=== PATIENT | female | born 1930 | race African-American/Black ===

== ENCOUNTER 2018-03-13 11:53 | Inpatient (IN) | payer OTHER ==
[~2018-03-13] VITALS: Ht 152.4 cm; Wt 45.4 kg
[~2018-03-13 11:53] MED LIST: COZAAR25 MG
[2018-03-13] MEDS ORDERED: ISOSORBIDE DINI30 MG (12:29)
[2018-03-13] MEDS ORDERED: ATIVAN1 MG (12:29)
[2018-03-13] MEDS ORDERED: PROTONIX40 MG (12:30)
[2018-03-20] MEDS ORDERED: LASIX20 MG PO (08:52)
== END 2018-03-20 16:58 | disposition home or self-care (01) | DRG 186 ==
LOC: ER 11:53 → MEDJ 03-14 08:44
PROC: 3E0F7GC Introduction of Other Therapeutic Substance into Respiratory Tract, Via Natural or Artificial Opening (ICD-10-PCS; 2018-03-14)
PROC: B246ZZZ Ultrasonography of Right and Left Heart (ICD-10-PCS; 2018-03-14)
PROC: 0W993ZX Drainage of Right Pleural Cavity, Percutaneous Approach, Diagnostic (ICD-10-PCS; principal; 2018-03-15)
PROC: BW40ZZZ Ultrasonography of Abdomen (ICD-10-PCS; 2018-03-19)
PROC: BW21ZZZ Computerized Tomography (CT Scan) of Abdomen and Pelvis (ICD-10-PCS; 2018-03-19)
DX: J90 Pleural effusion, not elsewhere classified (principal); B37.1 Pulmonary candidiasis; J45.41 Moderate persistent asthma with (acute) exacerbation; R09.02 Hypoxemia; E87.6 Hypokalemia; I34.0 Nonrheumatic mitral (valve) insufficiency; D50.8 Other iron deficiency anemias; M79.642 Pain in left hand

== ENCOUNTER 2018-04-17 17:30 | Inpatient (IN) | payer OTHER ==
[~2018-04-17] VITALS: Ht 149.9 cm; Wt 49.9 kg
[~2018-04-17 17:30] MED LIST changes: +ATIVAN1 MG; +ISOSORBIDE DINI30 MG; +LASIX20 MG PO; +PROTONIX40 MG
[2018-05-11] MEDS ORDERED: ZYPREXA PO (15:04)
[2018-05-11] MEDS ORDERED: IPRATROPIU0.2 MG/1 M IH (15:04)
[2018-05-11] MEDS ORDERED: ATIVAN1 MG PO (15:04)
[2018-05-11] MEDS ORDERED: XOPENEX0.63 MG/3 IH (15:04)
== END 2018-05-11 18:14 | disposition home health service (06) | DRG 186 ==
LOC: ER 17:30 → MEDI 04-18 11:27 → MEDJ 05-07 21:41
PROC: 3E0F7GC Introduction of Other Therapeutic Substance into Respiratory Tract, Via Natural or Artificial Opening (ICD-10-PCS; 2018-04-18)
PROC: 0W993ZX Drainage of Right Pleural Cavity, Percutaneous Approach, Diagnostic (ICD-10-PCS; principal; 2018-04-20)
PROC: BB24ZZZ Computerized Tomography (CT Scan) of Bilateral Lungs (ICD-10-PCS; 2018-04-21)
PROC: 0W9930Z Drainage of Right Pleural Cavity with Drainage Device, Percutaneous Approach (ICD-10-PCS; 2018-04-27)
PROC: 0B9N30Z Drainage of Right Pleura with Drainage Device, Percutaneous Approach (ICD-10-PCS; 2018-05-05)
PROC: 0BPQX0Z Removal of Drainage Device from Pleura, External Approach (ICD-10-PCS; 2018-05-05)
PROC: 4A033R1 Measurement of Arterial Saturation, Peripheral, Percutaneous Approach (ICD-10-PCS; 2018-05-11)
DX: J90 Pleural effusion, not elsewhere classified (principal); B37.1 Pulmonary candidiasis; J18.9 Pneumonia, unspecified organism; I50.30 Unspecified diastolic (congestive) heart failure; R09.02 Hypoxemia; D50.8 Other iron deficiency anemias; K22.0 Achalasia of cardia; J45.998 Other asthma; J84.112 Idiopathic pulmonary fibrosis; K21.9 Gastro-esophageal reflux disease without esophagitis; E87.6 Hypokalemia; Z95.0 Presence of cardiac pacemaker; I27.29 Other secondary pulmonary hypertension; I34.0 Nonrheumatic mitral (valve) insufficiency; I11.0 Hypertensive heart disease with heart failure

== ENCOUNTER 2019-01-25 09:47 | Outpatient (CLI) | payer OTHER ==
[~2019-01-25 09:47] MED LIST changes: +ATIVAN1 MG PO; +IPRATROPIU0.2 MG/1 M IH; +XOPENEX0.63 MG/3 IH; +ZYPREXA PO
== END 2019-01-25 14:09 | disposition home or self-care (01) ==
LOC: RX STUDY 09:47
DX: R13.19 Other dysphagia (principal)